=== PATIENT | male | born 1960 | race Caucasian/White ===

== ENCOUNTER 2019-10-29 15:56 | Emergency (ER) | payer OTHER ==
[~2019-10-29] VITALS: Ht 172.7 cm; Wt 127.9 kg
[2019-10-29 16:22] VITALS: Ht 172.7 cm; Wt 127.9 kg
[2019-10-29 17:44] VITALS: BP 115/71
== END 2019-10-29 17:44 | disposition home or self-care (01) ==
LOC: ED 15:56
DX: S61.412A Laceration without foreign body of left hand, initial encounter (principal); W31.89XA Contact with other specified machinery, initial encounter; Y93.89 Activity, other specified; Y92.89 Other specified places as the place of occurrence of the external cause; Y99.8 Other external cause status
CPT/HCPCS: J2001

== ENCOUNTER 2020-09-27 20:59 | Emergency (ER) | payer OTHER ==
[~2020-09-27] VITALS: Ht 172.7 cm; Wt 128.8 kg
[2020-09-27 21:05] VITALS: BP 142/91; Ht 172.7 cm; Wt 128.8 kg
== END 2020-09-27 22:04 | disposition home or self-care (01) ==
LOC: ED 20:59
DX: U07.1 COVID-19 (principal); I10 Essential (primary) hypertension; E11.9 Type 2 diabetes mellitus without complications; Z88.8 Allergy status to other drugs, medicaments and biological substances
CPT/HCPCS: U0003